=== PATIENT | female | born 1985 | race African-American/Black ===

== ENCOUNTER 2016-11-22 12:36 | Emergency (ER) | payer OTHER ==
[~2016-11-22] VITALS: Ht 175.3 cm; Wt 79.0 kg
[2016-11-22 15:10] VITALS: BP 118/69
== END 2016-11-22 16:40 | disposition home or self-care (01) ==
LOC: ER 16:34
DX: J02.0 Streptococcal pharyngitis (principal); M54.2 Cervicalgia; R59.1 Generalized enlarged lymph nodes; R03.0 Elevated blood-pressure reading, without diagnosis of hypertension
CPT/HCPCS: 87430; 99283